=== PATIENT | male | born 1975 | race African-American/Black ===

== ENCOUNTER → 2018-02-04 | Outpatient (RCR) | payer OTHER | LOC: PT 01-26 13:44 | PROVIDERS: ATTEND Specialist | DX: S46.091A Other injury of muscle(s) and tendon(s) of the rotator cuff of right shoulder, initial encounter (principal); M25.511 Pain in right shoulder; M25.611 Stiffness of right shoulder, not elsewhere classified; M62.81 Muscle weakness (generalized) | CPT/HCPCS: 97110 ×4; 97161; G8984; G8985 ==

== ENCOUNTER 2018-02-16 13:52 | Outpatient (RCR) | payer OTHER | END 2018-03-07 | LOC: PT 13:52 | PROVIDERS: ATTEND Specialist | DX: S46.091A Other injury of muscle(s) and tendon(s) of the rotator cuff of right shoulder, initial encounter (principal); M62.81 Muscle weakness (generalized); M25.511 Pain in right shoulder; M25.611 Stiffness of right shoulder, not elsewhere classified | CPT/HCPCS: 97139 ==